=== PATIENT | female | born 1995 | race Caucasian/White ===

== ENCOUNTER 2021-01-31 13:26 | Inpatient (IN) | payer MEDICAID, SELFPAY ==
--- NOTE | ~2021-01-31 | XR_ITS ---
EXAMINATION: XR CHEST CLINICAL INFORMATION: Jaundice COMPARISON: None TECHNIQUE: Frontal view of the chest was obtained. FINDINGS: Cardiac silhouette is normal in size. Low lung volumes. No lobar consolidation. No pleural effusion or pneumothorax. No gross osseous abnormality. XR/XR chest 1V IMPRESSION: No acute pulmonary pathology.
--- NOTE | ~2021-01-31 | US_ITS ---
EXAMINATION: US ABDOMEN COMPLETE. Ultrasound duplex arterial and venous CLINICAL INFORMATION: Jaundice. Rule out portal vein thrombosis.. COMPARISON: None TECHNIQUE: Real-time imaging of the abdominal viscera. Doppler imaging upper abdomen vasculature was performed. FINDINGS: PANCREAS: Normal. ABDOMINAL AORTA: The proximal, mid, and distal segments are normal in caliber. INFERIOR VENA CAVA: Visualized portions are normal. LIVER: The liver is enlarged in size. The liver contour is normal. There is diffuse hepatic steatosis. No focal hepatic lesion. There is no intrahepatic biliary duct dilatation seen. GALLBLADDER: There is diffuse echogenic bilateral without stones, sludge, polyps, wall thickening or pericholecystic fluid. COMMON BILE DUCT: Normal in caliber measuring 0.27 cm in diameter. RIGHT KIDNEY: Normal. No hydronephrosis. No renal calculi or focal parenchymal lesions. The kidney measures 12.8 cm in maximum dimension. LEFT KIDNEY: There is anechoic cyst in midpole measuring 1.0 x 0.9 x 0.8 cm. No hydronephrosis. No renal calculi or focal parenchymal lesions. The kidney measures 11.3 cm in maximum dimension. SPLEEN: Normal. The spleen measures 14.2 cm in maximum dimension. FREE FLUID: None. On Doppler exam, there is normal hepatopedal flow seen in the main, right and left portal veins. There is antegrade but slightly turbulent flow seen in the main hepatic artery. Antegrade flow is also visualized in the right hepatic and a left hepatic arteries. The the middle, left and right hepatic veins have normal flow away from the liver. The IVC waveform is normal. The splenic vein is patent. There is no ascites or collateral vessels seen. US/US duplex arterial venous comp IMPRESSION: Midpole left renal cyst. Moderate hepatomegaly with diffuse hepatic steatosis. Normal Doppler examination with patent antegrade portal venous flow and patent hepatic veins. The hepatic artery is patent as well.
--- NOTE | ~2021-01-31 | US_ITS ---
EXAMINATION: US ABDOMEN COMPLETE. Ultrasound duplex arterial and venous CLINICAL INFORMATION: Jaundice. Rule out portal vein thrombosis.. COMPARISON: None TECHNIQUE: Real-time imaging of the abdominal viscera. Doppler imaging upper abdomen vasculature was performed. FINDINGS: PANCREAS: Normal. ABDOMINAL AORTA: The proximal, mid, and distal segments are normal in caliber. INFERIOR VENA CAVA: Visualized portions are normal. LIVER: The liver is enlarged in size. The liver contour is normal. There is diffuse hepatic steatosis. No focal hepatic lesion. There is no intrahepatic biliary duct dilatation seen. GALLBLADDER: There is diffuse echogenic bilateral without stones, sludge, polyps, wall thickening or pericholecystic fluid. COMMON BILE DUCT: Normal in caliber measuring 0.27 cm in diameter. RIGHT KIDNEY: Normal. No hydronephrosis. No renal calculi or focal parenchymal lesions. The kidney measures 12.8 cm in maximum dimension. LEFT KIDNEY: There is anechoic cyst in midpole measuring 1.0 x 0.9 x 0.8 cm. No hydronephrosis. No renal calculi or focal parenchymal lesions. The kidney measures 11.3 cm in maximum dimension. SPLEEN: Normal. The spleen measures 14.2 cm in maximum dimension. FREE FLUID: None. On Doppler exam, there is normal hepatopedal flow seen in the main, right and left portal veins. There is antegrade but slightly turbulent flow seen in the main hepatic artery. Antegrade flow is also visualized in the right hepatic and a left hepatic arteries. The the middle, left and right hepatic veins have normal flow away from the liver. The IVC waveform is normal. The splenic vein is patent. There is no ascites or collateral vessels seen. US/US abdomen complete IMPRESSION: Midpole left renal cyst. Moderate hepatomegaly with diffuse hepatic steatosis. Normal Doppler examination with patent antegrade portal venous flow and patent hepatic veins. The hepatic artery is patent as well.
[2021-01-31 14:23] VITALS: BP 108/48; PULSE 107; RESP 19; TEMP 37.2; O2SAT 97; BMI 22.6
[2021-01-31 17:28] LABS: Basophils Percent Auto 0.4 % (0-2); Eosinophils Absolute Auto 0.1 X10*3/uL (0.0-0.4); Eosinophils Percent Auto 0.6 % (0-4); Hematocrit 31.7 % (37-47); Hemoglobin 10.8 g/dl (12.0-16.0); Imm Gran Abs Auto 0.41 X10*3/uL (0.00-0.03); Lymphocytes Absolute Auto 0.5 X10*3/uL (1.2-4.9); Lymphocytes Percent Auto 4.9 % (20-40); MANUAL DIFF FLAG SCAN; Mean Corpuscular HGB Conc 34.1 g/dl (31.0-35.0); Mean Corpuscular Hemoglobin 31.5 pg (27.0-33.0); Mean Corpuscular Volume 92.4 fL (80-98); Mean Platelet Volume 9.7 fL (9.4-12.3); Monocytes Percent Auto 9.6 % (2-11); Neutrophils Absolute Auto 8.3 X10*3/uL (2.0-8.3); Neutrophils Percent Auto 80.5 % (45-73); Platelet Count 461 X10*3/uL (160-400); Red Blood Count 3.43 X10*6/uL (4.20-5.50); SCAN SMEAR FLAG 1; White Blood Count 10.3 X10*3/uL (4.8-10.8)
[2021-01-31 17:34] LABS: INTERNATIONAL NORM RATIO 1.6 (0.9-1.1); Prothrombin Time 19.1 SEC (10.8-13.0)
--- NOTE | 2021-01-31 17:34 | ED.GENADULT ---
HPI - General Adult General Chief complaint: Abdominal Pain Stated complaint: JAUNDICE Time Seen by Provider: 01/31/21 14:51 Source: patient Mode of arrival: ambulatory Limitations: no limitations History of Present Illness HPI narrative: 25-year-old female with no significant past medical history presents with jaundice. States that she noted her skin turning color less than a week ago, states that her abdomen feels distended and hard. She stop drinking alcohol about a week ago, she would drink at least a sleeve and a pt of 100 proof or more alcohol. She has been drinking like that for several years. She stopped drinking once she moved away from [place] to [place]. She was told at 1 time that she was close to liver failure, she has not seen a physician in several years. She does not describe any fevers or chills, does not describe any withdrawal symptoms at this time, denies chest pain or pressure, palpitations, shortness breath, dysuria, hematuria, and extremity edema. Onset (ago): week(s) (1) Location: abdomen Severity: moderate Pain Consistency: constant Associated symptoms: other (Jaundice) Related Data Home Medications Medication Instructions Recorded Confirmed No Known Home Meds 01/31/21 01/31/21 Allergies Allergy/AdvReac Type Severity Reaction Status Date / Time No Known Allergies Allergy Verified 01/31/21 14:52 Review of Systems Review of Systems: Constitutional: No Weight loss, No Fever, No Chills, No Night Sweats, positive Fatigue, positive Malaise ENT/Mouth: No Hearing loss, No Ear Pain, No Nasal Congestion, No Sinus Pain, No Hoarseness, No sore throat, No Rhinorrhea, No Swallowing Difficulty Eyes: Positive scleral icteric, No Eye Pain, No Swelling, No Redness, No Foreign Body, No Discharge, No Vision Changes Cardiovascular: No Chest Pain, No SOB, No Dyspnea on Exertion, No Orthopnea, No Edema, No Palpitations Respiratory: No Cough, No Sputum, No Wheezing, No Smoke Exposure, No Dyspnea Gastrointestinal: Positive Nausea, Positive Vomiting, positive Diarrhea, positive abdominal Pain, No Hematochezia, No Melena Genitourinary: no irregular bleeding, No Dysuria, No Urinary Frequency, No Hematuria, No Urinary Incontinence, No Urgency, No Flank Pain, No Urinary Flow Changes, No Hesitancy Musculoskeletal: No joint pain, No Myalgias, No Joint Swelling Skin: Positive jaundice, No Skin Lesions, No rash Neuro: No Weakness, No Numbness, No Paresthesias, No Loss of Consciousness, No Dizziness, No Headache Psych: No Anxiety/Panic, No Depression, No SI/HI/AH/VH, No Social Issues Heme/Lymph: No Bruising, No Bleeding,No Lymphadenopathy Endocrine: No Polyuria, No Polydipsia, No Temperature Intolerance Yes all other systems are reviewed and are negative [facility] Past Medical History Attestation statement: The following information was validated with the patient. Source: old records reviewed Social History Social History Alcohol intake: former Smoking Status: Current every day smoker Use of substances other than those prescribed or required for medical reasons: Yes Substance Use Type: Heroin and Marijuana Substance Use Frequency: Occasionally Advance Directives: No Advance Directives Information Provided: No Physical Exam Vital Signs: Vital Signs: Last Vital Signs Temp 98.6 F 01/31/21 22:24 Pulse 101 H 02/01/21 00:00 Resp 15 02/01/21 00:00 BP 102/56 L 02/01/21 00:00 Pulse Ox 97 02/01/21 00:00 Body Mass Index 22.6 Appearance: Alert. Oriented X3. No acute distress. Head: Normal external exam. Normocephalic. Atraumatic. No Carrillo signs noted. No raccoon eyes noted Eyes: PERRLA. EOMI. Conjunctiva and sclera icteric. Eyelids normal. ENT: TM's Normal. Pharynx normal. Uvula midline. Moist mucous membranes. No trismus noted. No drooling noted. No muffled voice noted. Neck: Normal inspection. Neck supple. No adenopathy. Thyroid Normal. No meningeal signs. No neck mass noted. CVS: Normal heart rate and rhythm. Heart sound normal. No murmurs noted. Pulses equal to all extremities. Respiratory: No respiratory distress. Painless inspiration. Breath sounds normal. No wheezes/rales/rhonchi noted. Chest nontender. No accessory muscle usage noted or decreased air movement noted. Abdomen: Soft and distended, firm but not rigid. Bowel sounds normal in all 4 quadrants. No distention noted. No organomegaly noted however exam limited secondary to suspected ascites. No visible injury noted. Back: No CVA tenderness. Full range of motion noted. Skin: Jaundiced, dry. Skin warm and dry. No rashes/lesions/lacerations noted. Extremities: No lower extremity edema. Extremities exhibit normal range of motion. Extremities nontender. Neuro: cranial nerves 2-12 intact, no focal neural deficits, strength 5/5 to all extremities, No motor deficit. No sensory deficit. Course Course Course Narrative: 25-year-old female with past medical history of alcohol abuse and liver disease presents with approximately 1 week of gradual onset of jaundice, abdominal pain, and fatigue. Patient recently moved from [place] to [place], and has not seen a physician in approximately 10 years. She did stop drinking about a week and half ago when she moved from [place] to [place]. She did not have any complications or alcohol withdrawal symptoms. She did notice that her skin was starting to discolor her about a week ago, and presents with diffuse jaundice and scleral icterus with abdominal pain and some bloating. She did report liver disease, suspected that she was close to cirrhosis. She has been drinking at least 1 sleeve and a pt of 100 proof or greater alcohol. She has been drinking heavily for several years. Will order labs, abdominal ultrasound, give vitamin supplementation, a L of fluid, with plan to admit. 7:41 p.m. patient has a Child Zamarripa score of 9. Discussion with hospitalist, hospitalist would like GI consult. Will consult with GI once abdominal ultrasound resulted. 9:40 p.m. discussion with on-call GI, Dr. Casanova, plan to admit for acute alcohol hepatitis, patient does not have any signs or symptoms indicating encephalopathy, ammonia level is 64. Discussion with hospitalist, hospitalist agrees to plan to admit. Consultations Consultation #1: ella Time: 19:30 Consultation #2: Edilberto Time: 19:34 Medical Decision Making Lab Data Lab results reviewed: Yes I reviewed the patient's lab results. Result diagrams: 01/31/21 17:21 01/31/21 17:21 Labs: Lab Results 01/31/21 01/31/21 01/31/21 Range/Units 17:21 17:21 17:21 WBC 10.3 (4.8-10.8) X10*3/uL RBC 3.43 L (4.20-5.50) X10*6/uL Hgb 10.8 L (12.0-16.0) g/dl Hct 31.7 L (37-47) % MCV 92.4 (80-98) fL MCH 31.5 (27.0-33.0) pg MCHC 34.1 (31.0-35.0) g/dl RDW 18.0 H (11.0-16.0) % Plt Count 461 H (160-400) X10*3/uL MPV 9.7 (9.4-12.3) fL Immature Gran % (Auto) 4.0 H (0.0-0.4) % Neut % (Auto) 80.5 H (45-73) % Lymph % (Auto) 4.9 L (20-40) % Clayton % (Auto) 9.6 (2-11) % Eos % (Auto) 0.6 (0-4) % Baso % (Auto) 0.4 (0-2) % Lymph # (Auto) 0.5 L (1.2-4.9) X10*3/uL Clayton # (Auto) 1.0 (0.1-1.2) X10*3/uL Eos # (Auto) 0.1 (0.0-0.4) X10*3/uL Baso # (Auto) 0.0 (0.0-0.2) X10*3/uL Abs Immat Gran (auto) 0.41 H (0.00-0.03) X10*3/uL Absolute Neuts (auto) 8.3 (2.0-8.3) X10*3/uL Absolute Nucleated RBC 0.000 (0.0-0.012) X10*3/uL Nucleated RBC % (auto) 0.0 (0.0-0.2) /100WBC Smear Tech's Comments VERIFIED PT 19.1 H (10.8-13.0) SEC INR 1.6 H (0.9-1.1) Sodium 130 L (135-145) mmol/L Potassium 3.0 L (3.3-5.1) mmol/L Chloride 92 L (96-108) mmol/L Carbon Dioxide 29 (22-29) mmol/L Anion Gap 12 (12-20) BUN 7 L (9-16) mg/dL Creatinine 0.60 (0.5-1.4) mg/dL Estim Creat Clear Calc 106.3 Estimated GFR > 60 Random Glucose 101 (60-115) mg/dL Calcium 8.2 L (8.4-10.2) mg/dL Magnesium (1.6-2.6) mg/dL Total Bilirubin 16.9 H (0.0-1.0) mg/dL Direct Bilirubin 13.0 H (0.0-0.5) mg/dL AST 516 H (5-31) U/L ALT 54 H (0-31) U/L Alkaline Phosphatase 144 H (39-117) U/L Ammonia (13-55) umol/L Lactate Dehydrogenase (122-220) U/L Troponin I High Sens (<3.5-17.0) ng/L Total Protein 6.4 L (6.5-8.0) g/dL Albumin 2.8 L (3.5-5.0) g/dL Lipase (8-78) U/L Salicylates (15-30) mg/dL Acetaminophen (<30) mcg/mL Ethyl Alcohol mg/dL COVID-19 ([facility]) (Negative) COVID-19 Clin Com 01/31/21 01/31/21 01/31/21 Range/Units 18:00 18:00 18:00 WBC (4.8-10.8) X10*3/uL RBC (4.20-5.50) X10*6/uL Hgb (12.0-16.0) g/dl Hct (37-47) % MCV (80-98) fL MCH (27.0-33.0) pg MCHC (31.0-35.0) g/dl RDW (11.0-16.0) % Plt Count (160-400) X10*3/uL MPV (9.4-12.3) fL Immature Gran % (Auto) (0.0-0.4) % Neut % (Auto) (45-73) % Lymph % (Auto) (20-40) % Clayton % (Auto) (2-11) % Eos % (Auto) (0-4) % Baso % (Auto) (0-2) % Lymph # (Auto) (1.2-4.9) X10*3/uL Clayton # (Auto) (0.1-1.2) X10*3/uL Eos # (Auto) (0.0-0.4) X10*3/uL Baso # (Auto) (0.0-0.2) X10*3/uL Abs Immat Gran (auto) (0.00-0.03) X10*3/uL Absolute Neuts (auto) (2.0-8.3) X10*3/uL Absolute Nucleated RBC (0.0-0.012) X10*3/uL Nucleated RBC % (auto) (0.0-0.2) /100WBC Smear Tech's Comments PT (10.8-13.0) SEC INR (0.9-1.1) Sodium (135-145) mmol/L Potassium (3.3-5.1) mmol/L Chloride (96-108) mmol/L Carbon Dioxide (22-29) mmol/L Anion Gap (12-20) BUN (9-16) mg/dL Creatinine (0.5-1.4) mg/dL Estim Creat Clear Calc Estimated GFR Random Glucose (60-115) mg/dL Calcium (8.4-10.2) mg/dL Magnesium 2.4 (1.6-2.6) mg/dL Total Bilirubin (0.0-1.0) mg/dL Direct Bilirubin (0.0-0.5) mg/dL AST (5-31) U/L ALT (0-31) U/L Alkaline Phosphatase (39-117) U/L Ammonia (13-55) umol/L Lactate Dehydrogenase 148 (122-220) U/L Troponin I High Sens < 3.5 (<3.5-17.0) ng/L Total Protein (6.5-8.0) g/dL Albumin (3.5-5.0) g/dL Lipase 50 (8-78) U/L Salicylates < 5.0 L (15-30) mg/dL Acetaminophen 6 (<30) mcg/mL Ethyl Alcohol < 10 mg/dL COVID-19 ([facility]) (Negative) COVID-19 Clin Com 01/31/21 01/31/21 Range/Units 19:18 21:47 WBC (4.8-10.8) X10*3/uL RBC (4.20-5.50) X10*6/uL Hgb (12.0-16.0) g/dl Hct (37-47) % MCV (80-98) fL MCH (27.0-33.0) pg MCHC (31.0-35.0) g/dl RDW (11.0-16.0) % Plt Count (160-400) X10*3/uL MPV (9.4-12.3) fL Immature Gran % (Auto) (0.0-0.4) % Neut % (Auto) (45-73) % Lymph % (Auto) (20-40) % Clayton % (Auto) (2-11) % Eos % (Auto) (0-4) % Baso % (Auto) (0-2) % Lymph # (Auto) (1.2-4.9) X10*3/uL Clayton # (Auto) (0.1-1.2) X10*3/uL Eos # (Auto) (0.0-0.4) X10*3/uL Baso # (Auto) (0.0-0.2) X10*3/uL Abs Immat Gran (auto) (0.00-0.03) X10*3/uL Absolute Neuts (auto) (2.0-8.3) X10*3/uL Absolute Nucleated RBC (0.0-0.012) X10*3/uL Nucleated RBC % (auto) (0.0-0.2) /100WBC Smear Tech's Comments PT (10.8-13.0) SEC INR (0.9-1.1) Sodium (135-145) mmol/L Potassium (3.3-5.1) mmol/L Chloride (96-108) mmol/L Carbon Dioxide (22-29) mmol/L Anion Gap (12-20) BUN (9-16) mg/dL Creatinine (0.5-1.4) mg/dL Estim Creat Clear Calc Estimated GFR Random Glucose (60-115) mg/dL Calcium (8.4-10.2) mg/dL Magnesium (1.6-2.6) mg/dL Total Bilirubin (0.0-1.0) mg/dL Direct Bilirubin (0.0-0.5) mg/dL AST (5-31) U/L ALT (0-31) U/L Alkaline Phosphatase (39-117) U/L Ammonia 64 H (13-55) umol/L Lactate Dehydrogenase (122-220) U/L Troponin I High Sens (<3.5-17.0) ng/L Total Protein (6.5-8.0) g/dL Albumin (3.5-5.0) g/dL Lipase (8-78) U/L Salicylates (15-30) mg/dL Acetaminophen (<30) mcg/mL Ethyl Alcohol mg/dL COVID-19 ([facility]) Negative (Negative) COVID-19 Clin Com See Note Imaging Data Abdominal ultrasound with Doppler: Attestation: I personally reviewed and interpreted this imaging study as follows: Radiologist's impression: EXAMINATION: US ABDOMEN COMPLETE. Ultrasound duplex arterial and venous CLINICAL INFORMATION: Jaundice. Rule out portal vein thrombosis.. COMPARISON: None TECHNIQUE: Real-time imaging of the abdominal viscera. Doppler imaging upper abdomen vasculature was performed. FINDINGS: PANCREAS: Normal. ABDOMINAL AORTA: The proximal, mid, and distal segments are normal in caliber. INFERIOR VENA CAVA: Visualized portions are normal. LIVER: The liver is enlarged in size. The liver contour is normal. There is diffuse hepatic steatosis. No focal hepatic lesion. There is no intrahepatic biliary duct dilatation seen. GALLBLADDER: There is diffuse echogenic bilateral without stones, sludge, polyps, wall thickening or pericholecystic fluid. COMMON BILE DUCT: Normal in caliber measuring 0.27 cm in diameter. RIGHT KIDNEY: Normal. No hydronephrosis. No renal calculi or focal parenchymal lesions. The kidney measures 12.8 cm in maximum dimension. LEFT KIDNEY: There is anechoic cyst in midpole measuring 1.0 x 0.9 x 0.8 cm. No hydronephrosis. No renal calculi or focal parenchymal lesions. The kidney measures 11.3 cm in maximum dimension. SPLEEN: Normal. The spleen measures 14.2 cm in maximum dimension. FREE FLUID: None. On Doppler exam, there is normal hepatopedal flow seen in the main, right and left portal veins. There is antegrade but slightly turbulent flow seen in the main hepatic artery. Antegrade flow is also visualized in the right hepatic and a left hepatic arteries. The the middle, left and right hepatic veins have normal flow away from the liver. The IVC waveform is normal. The splenic vein is patent. There is no ascites or collateral vessels seen. US/US abdomen complete IMPRESSION: Midpole left renal cyst. Moderate hepatomegaly with diffuse hepatic steatosis. Normal Doppler examination with patent antegrade portal venous flow and patent hepatic veins. The hepatic artery is patent as well. Critical Care Time Critical Care Time Critical Care Time: Yes Total Critical Care Time: 65 Attestation: I have personally provided critical care time exclusive of time spent on separately billable procedures. Time includes review of laboratory data, radiology results, discussion with consultants, and monitoring for potential decompensation. Interventions were performed as documented. Discharge Plan Discharge Clinical Impression: Acute alcoholic hepatitis Patient Disposition: Admitted As Inpatient
--- NOTE | 2021-01-31 17:35 | ECG_ITS ---
Test Reason : ABD PAIN Blood Pressure : / mmHG Vent. Rate : 097 BPM Atrial Rate : 097 BPM P-R Int : 140 ms QRS Dur : 106 ms QT Int : 374 ms P-R-T Axes : 042 035 010 degrees QTc Int : 474 ms Normal sinus rhythm Nonspecific ST and T wave abnormality Abnormal ECG No previous ECGs available Referred By: Terri Felder Electronically Signed By:KIM NOLEN
[2021-01-31 17:51] LABS: SLIDE REVIEW VERIFIED
[2021-01-31] MEDS: 0.9 % Sodium Chloride 1,000 ML 999 ML IVCONT (18:01)
[2021-01-31 18:07] LABS: Alanine Aminotransferase 54 U/L (0-31); Albumin Level 2.8 g/dL (3.5-5.0); Alkaline Phosphatase 144 U/L (39-117); Anion Gap 12 (12-20); Aspartate Amino Transferase 516 U/L (5-31); Blood Urea Nitrogen 7 mg/dL (9-16); Calcium 8.2 mg/dL (8.4-10.2); Carbon Dioxide 29 mmol/L (22-29); Chloride 92 mmol/L (96-108); Creatinine Clr Calc Pharmacy 106.3; Estimated Glomerular Filt Rate > 60; Glucose Random 101 mg/dL (60-115); Sodium 130 mmol/L (135-145); Total Protein 6.4 g/dL (6.5-8.0)
[2021-01-31 18:36] LABS: Ethanol < 10 mg/dL
[2021-01-31 18:37] LABS: Bilirubin Total 16.9 mg/dL (0.0-1.0)
[2021-01-31 18:44] LABS: Troponin-I High Sensitivity < 3.5 ng/L (<3.5-17.0)
[2021-01-31 18:45] LABS: Acetaminophen LAB 6 mcg/mL (<30); Lactate Dehydrogenase 148 U/L (122-220); Lipase 50 U/L (8-78); Magnesium 2.4 mg/dL (1.6-2.6)
--- NOTE | 2021-01-31 19:00 | PC.NURSE ---
Report taken from ENMANUEL Henry Patient is jaundice and has considerable alcohol history. Patient states she stopped drinking 2 wks ago. Labs are coming in and and electrolytes are off. Plan to put in another IV.
[2021-01-31 19:11] VITALS: BP 98/52; PULSE 94; RESP 18; TEMP 37.3; O2SAT 97
[2021-01-31] MEDS: Potassium Chloride Packet 20 MEQ PACKET 40 MEQ PO (19:18)
[2021-01-31] MEDS: Folic Acid 1 MG TABLET PO (19:18)
[2021-01-31] MEDS: Thiamine HCL 100 MG TABLET PO (19:19)
[2021-01-31 19:36] LABS: Ammonia 64 umol/L (13-55)
[2021-01-31 20:00] VITALS: BP 107/55; PULSE 100; RESP 18; TEMP 37.3; O2SAT 97
[2021-01-31] MEDS: predniSONE 20 MG TABLET 60 MG PO (22:01)
[2021-01-31 22:09] LABS: COVID-19 Test Negative (Negative)
[2021-01-31 22:24] VITALS: BP 110/55; PULSE 100; RESP 16; TEMP 37; O2SAT 97
--- NOTE | 2021-01-31 22:28 | P.HPHOSP_ITS ---
History of Present Illness Date of Service: 01/31/21 Chief Complaint: Jaundice 25-year-old female with a past medical history of alcohol abuse presented to the hospital with a chief complaint of generous. Patient mentioned that she noticed jaundice about 3-4 days ago. Mentions that for the past week or so she has been feeling fatigue tiredness loss of appetite. Denies any nausea vomiting diarrhea. Denies any blood in the stool. Denies any hematemesis. Mentions that she used to have nausea and vomiting but never had blood in the vomitus. Denies any numbness tingling. Denies any urinary symptoms. Mentioned that she used to drink alcohol daily in heavy quantities; last drink was about 1 week ago. Denies any withdrawal symptoms or seizure-like activities. Denies any fever chills cough. Denies any chest pain palpitations. Denies any numbness tingling. Review of all other systems is negative except mentioned above. ER course: Per ER team patient exam was benign. Ultrasound showed no evidence of obstruction. Labs showed elevated T bili of 16.1, LFTs elevated. Discussed with Dr. Casanova from Gastroenterology, who mentioned admitted to [facility] and start prednisolone for alcoholic hepatitis, will be evaluated in the morning, no need for transfer at this point. [facility] Social History Alcohol intake: former Smoking Status: Current every day smoker Use of substances other than those prescribed or required for medical reasons: Yes Substance Use Type: Heroin and Marijuana Substance Use Frequency: Occasionally Currently Displaying Signs/Symptoms of Drug Intoxication Withdrawal: No Advance Directives: No Advance Directives Information Provided: No Do you have thoughts of harming others: None Do you have a plan to hurt others: No Plan service: No Current occupational status: unemployed Meds Allergies Allergy/AdvReac Type Severity Reaction Status Date / Time No Known Allergies Allergy Verified 01/31/21 14:52 Active Medications: Current Medications Generic Name Dose Route Start Last Admin Trade Name Freq PRN Reason Stop Dose Admin Famotidine 20 mg 02/01/21 09:00 Famotidine 20 Mg Tablet PO DAILY KAVITHA Folic Acid 1 mg 02/01/21 09:00 Folic Acid 1 Mg Tablet PO 02/04/21 08:59 DAILY KAVITHA Multivitamins 1 tab 02/01/21 09:00 B-Complex With Vitamin C Tablet PO DAILY [facility] Pharmacy Consult 1 each 01/31/21 21:33 Consult Rx Perform Med Rec MISCELLANE ONCE PRN Consult order Prednisolone Sodium Phosphate 40 mg 02/01/21 09:00 Prednisolone Sodium Phosphate 15 Mg/5 Ml Solution PO DAILY [facility] Sodium Chloride 3 ml 02/01/21 00:00 0.9 % Sodium Chloride Flush 3 Ml Syringe IVFLUSH QSHIFT [facility] Thiamine HCl 100 mg 02/01/21 09:00 Thiamine Hcl 100 Mg Tablet PO 02/04/21 08:59 DAILY [facility] Home Medications Medication Instructions Recorded Confirmed Last Taken Type No Known Home Meds 01/31/21 01/31/21 Unknown History Physical Exam Vital Signs and Narrative: Vital Signs: Last Vital Signs Temp 99.2 F 01/31/21 20:00 Pulse 100 01/31/21 20:00 Resp 18 01/31/21 20:00 BP 107/55 L 01/31/21 20:00 Pulse Ox 97 01/31/21 20:00 Body Mass Index 22.6 Gen: Appears be in no acute distress; icteric sclera and yellow skin HEENT: NCAT, Moist mucosa. Pulmonary: Vesicular breath sounds, fair air entry CVS: Normal S1-S2 Abdomen: BS+, Soft, Nontender Extremities: Warm well perfused Neuro: Alert and awake. Results Labs CBC and Chem 7: 02/01/21 08:23 02/01/21 08:23 Labs: Laboratory Results - last 24 hr 01/31/21 01/31/21 01/31/21 17:21 17:21 17:21 MCV 92.4 MCH 31.5 MCHC 34.1 RDW 18.0 H Plt Count 461 H MPV 9.7 Immature Gran % (Auto) 4.0 H Neut % (Auto) 80.5 H Lymph % (Auto) 4.9 L Garden % (Auto) 9.6 Eos % (Auto) 0.6 Baso % (Auto) 0.4 Lymph # (Auto) 0.5 L Garden # (Auto) 1.0 Eos # (Auto) 0.1 Baso # (Auto) 0.0 Abs Immat Gran (auto) 0.41 H Absolute Neuts (auto) 8.3 Absolute Nucleated RBC 0.000 Nucleated RBC % (auto) 0.0 Smear Tech's Comments VERIFIED PT 19.1 H INR 1.6 H Anion Gap 12 Estim Creat Clear Calc 106.3 Estimated GFR > 60 Random Glucose 101 Calcium 8.2 L Magnesium Total Bilirubin 16.9 H Direct Bilirubin 13.0 H AST 516 H ALT 54 H Alkaline Phosphatase 144 H Ammonia Lactate Dehydrogenase Troponin I High Sens Total Protein 6.4 L Albumin 2.8 L Lipase Acetaminophen Ethyl Alcohol COVID-19 ([facility]) COVID-19 Clin Com 01/31/21 01/31/21 01/31/21 18:00 18:00 18:00 MCV MCH MCHC RDW Plt Count MPV Immature Gran % (Auto) Neut % (Auto) Lymph % (Auto) Garden % (Auto) Eos % (Auto) Baso % (Auto) Lymph # (Auto) Garden # (Auto) Eos # (Auto) Baso # (Auto) Abs Immat Gran (auto) Absolute Neuts (auto) Absolute Nucleated RBC Nucleated RBC % (auto) Smear Tech's Comments PT INR Anion Gap Estim Creat Clear Calc Estimated GFR Random Glucose Calcium Magnesium 2.4 Total Bilirubin Direct Bilirubin AST ALT Alkaline Phosphatase Ammonia Lactate Dehydrogenase 148 Troponin I High Sens < 3.5 Total Protein Albumin Lipase 50 Acetaminophen 6 Ethyl Alcohol < 10 COVID-19 ([facility]) COVID-19 Clin Com 01/31/21 01/31/21 19:18 21:47 MCV MCH MCHC RDW Plt Count MPV Immature Gran % (Auto) Neut % (Auto) Lymph % (Auto) Garden % (Auto) Eos % (Auto) Baso % (Auto) Lymph # (Auto) Garden # (Auto) Eos # (Auto) Baso # (Auto) Abs Immat Gran (auto) Absolute Neuts (auto) Absolute Nucleated RBC Nucleated RBC % (auto) Smear Tech's Comments PT INR Anion Gap Estim Creat Clear Calc Estimated GFR Random Glucose Calcium Magnesium Total Bilirubin Direct Bilirubin AST ALT Alkaline Phosphatase Ammonia 64 H Lactate Dehydrogenase Troponin I High Sens Total Protein Albumin Lipase Acetaminophen Ethyl Alcohol COVID-19 ([facility]) Negative COVID-19 Clin Com See Note Imaging Radiologist's Impressions: Impressions Abdomen Ultrasound 01/31/21 17:35 IMPRESSION: Midpole left renal cyst. Moderate hepatomegaly with diffuse hepatic steatosis. Normal Doppler examination with patent antegrade portal venous flow and patent hepatic veins. The hepatic artery is patent as well. Chest X-Ray 01/31/21 17:35 IMPRESSION: No acute pulmonary pathology. Doppler Study Ultrasound 01/31/21 20:10 IMPRESSION: Midpole left renal cyst. Moderate hepatomegaly with diffuse hepatic steatosis. Normal Doppler examination with patent antegrade portal venous flow and patent hepatic veins. The hepatic artery is patent as well. Assessment and Plan (1) Acute alcoholic hepatitis: Status: Acute 25-year-old female with a past medical history of alcohol abuse presented to the hospital with a chief complaint of Jaundice; noted to have alcoholic hepatitis. Admitted for further management Acute alcoholic hepatitis: Notified Gastroenterology Dr. Casanova. Will continue the patient on prednisolone 40 mg daily Monitor LFTs Will obtain hepatitis panel, EBV, CMV as well. MELD score 26; Maddreys Discriminantfunction score 58.8 Tylenol level negative. salycilate level pending History of alcohol abuse: Monitor on CIWA protocol. Seizure precautions. Thiamine, folate, multivitamins. Patient's last week was about 1 week ago. Alcoholic gastritis: PEPCID DVT ppx: SCD Code status: Full code
[2021-01-31 23:29] LABS: Salicylate < 5.0 mg/dL (15-30)
[2021-02-01] VITALS: BP 102/56; PULSE 101; RESP 15; O2SAT 97
[2021-02-01 06:00] VITALS: BP 102/65; PULSE 85; RESP 16; O2SAT 98
--- NOTE | 2021-02-01 07:13 | PC.NURSE ---
attempt to call report nurse not available will call back
--- NOTE | 2021-02-01 07:29 | PC.NURSE ---
called phlebotomy to notify pt will be going to [facility] [id number] for her am lab draw
[2021-02-01 07:51] VITALS: BP 97/62; PULSE 86; RESP 18; TEMP 35.8; O2SAT 96
[2021-02-01 08:47] LABS: HBsAGNum1 0.24 S/CO (0.00-0.99); Hepatitis B Surface Antigen Negative (Negative); ~Hepatitis C Antibody Nonreactive (Nonreactive)
[2021-02-01 08:50] LABS: HBS Num1 > 1000.00 mIU/mL (0-7.99); Hepatitis B Core Antibody Nonreactive (Nonreactive); ~Hepatitis B Surface Antibody REACTIVE (Nonreactive)
[2021-02-01 09:01] LABS: Basophils Percent Auto 0.3 % (0-2); Hematocrit 32.4 % (37-47); Hemoglobin 11.1 g/dl (12.0-16.0); Imm Gran Abs Auto 0.42 X10*3/uL (0.00-0.03); Imm Gran Pct Auto 3.9 % (0.0-0.4); Lymphocytes Absolute Auto 0.5 X10*3/uL (1.2-4.9); Lymphocytes Percent Auto 4.3 % (20-40); MANUAL DIFF FLAG SCAN; Mean Corpuscular HGB Conc 34.3 g/dl (31.0-35.0); Mean Corpuscular Hemoglobin 31.8 pg (27.0-33.0); Mean Corpuscular Volume 92.8 fL (80-98); Mean Platelet Volume 10.1 fL (9.4-12.3); Monocytes Absolute Auto 0.4 X10*3/uL (0.1-1.2); Monocytes Percent Auto 3.4 % (2-11); Neutrophils Absolute Auto 9.6 X10*3/uL (2.0-8.3); Neutrophils Percent Auto 88.1 % (45-73); Platelet Count 441 X10*3/uL (160-400); Red Blood Count 3.49 X10*6/uL (4.20-5.50); Red Cell Distribution Width 18.2 % (11.0-16.0); SCAN SMEAR FLAG 1; White Blood Count 10.9 X10*3/uL (4.8-10.8)
[2021-02-01 09:26] LABS: Alanine Aminotransferase 48 U/L (0-31); Albumin Level 2.5 g/dL (3.5-5.0); Alkaline Phosphatase 135 U/L (39-117); Anion Gap 11 (12-20); Aspartate Amino Transferase 370 U/L (5-31); Bilirubin Direct 12.7 mg/dL (0.0-0.5); Bilirubin Total 17.7 mg/dL (0.0-1.0); Blood Urea Nitrogen 7 mg/dL (9-16); Calcium 7.8 mg/dL (8.4-10.2); Carbon Dioxide 26 mmol/L (22-29); Chloride 98 mmol/L (96-108); Creatinine Clr Calc Pharmacy 132.8; Estimated Glomerular Filt Rate > 60; Glucose Random 110 mg/dL (60-115); Magnesium 2.4 mg/dL (1.6-2.6); Phosphorus 2.6 mg/dL (2.7-4.5); Sodium 131 mmol/L (135-145); Total Protein 5.9 g/dL (6.5-8.0)
--- NOTE | 2021-02-01 09:29 | MHC.CM.PN ---
PATIENT STATES THAT SHE IS INDEPENDENT WITH HER ADLS. SHE ALSO VERIFIES THAT SHE DOES NOT HAVE INSURANCE. PATIENT AGREES TO ASSISTANCE FROM [facility] WITH SECURING BENEFITS. SHE IS AWARE THAT FACE SHEET WILL BE FAXED TO THEM ([phone]) CASE MANAGEMENT FOLLOWING FOR ANY DISCHARGE NEEDS.
[2021-02-01] MEDS: Famotidine 20 MG TABLET PO (10:25)
[2021-02-01] MEDS: Thiamine HCL 100 MG TABLET PO (10:25)
[2021-02-01] MEDS: prednisoLONE sodium phosphate 15 MG/5 ML SOLUTION 40 MG PO (10:26)
[2021-02-01] MEDS: Folic Acid 1 MG TABLET PO (10:26)
[2021-02-01] MEDS: 0.9 % Sodium Chloride Flush 3 ML SYRINGE IVFLUSH ×4 (10:27→23:14)
--- NOTE | 2021-02-01 10:37 | HO.PM.IMPN ---
Subjective Subjective Date of Service: 02/01/21 <Hilda Julian NP - Last Filed: 02/01/21 10:46> Interval History: Follow up alcoholic hepatitis No abdominal pain, nausea or vomiting still with jaundice <Hilda Julian NP - Last Filed: 02/01/21 10:46> Physical Exam Vital Signs: Vital Signs: Last Vital Signs Temp 96.5 F L 02/01/21 07:51 Pulse 86 02/01/21 07:51 Resp 18 02/01/21 07:51 BP 97/62 02/01/21 07:51 Pulse Ox 96 02/01/21 07:51 Body Mass Index 22.6 <Hilda Julian NP - Last Filed: 02/01/21 10:46> Appearing in no acute distress head is normocephalic atraumatic eyes pupils are PERRLA sclera is icteric lung sounds are clear to auscultation heart regular rate rhythm, clear S1, S2 positive bowel sounds, abdomen is soft, nontender neuro patient is alert x3, no focal deficits Skin jaundiced <Hilda Julian NP - Last Filed: 02/01/21 10:46> Objective Data Current Medications Generic Name Dose Route Start Last Admin Trade Name Freq PRN Reason Stop Dose Admin Famotidine 20 mg 02/01/21 09:00 02/01/21 10:25 Famotidine 20 Mg Tablet PO 20 mg DAILY KAVITHA Administration Folic Acid 1 mg 02/01/21 09:00 02/01/21 10:26 Folic Acid 1 Mg Tablet PO 02/04/21 08:59 1 mg DAILY KAVITHA Administration Multivitamins 1 tab 02/01/21 09:00 02/01/21 10:25 B-Complex With Vitamin C Tablet PO 1 tab DAILY KAVITHA Administration Pharmacy Consult 1 each 01/31/21 21:33 Consult Rx Perform Med Rec MISCELLANE ONCE PRN Consult order Prednisolone Sodium Phosphate 40 mg 02/01/21 09:00 02/01/21 10:26 Prednisolone Sodium Phosphate 15 Mg/5 Ml Solution PO 40 mg DAILY KAVITHA Administration Sodium Chloride 3 ml 02/01/21 00:00 02/01/21 10:27 0.9 % Sodium Chloride Flush 3 Ml Syringe IVFLUSH 3 ml QSHIFT KAVITHA Administration Thiamine HCl 100 mg 02/01/21 09:00 02/01/21 10:25 Thiamine Hcl 100 Mg Tablet PO 02/04/21 08:59 100 mg DAILY KAVITHA Administration <Hilda Julian NP - Last Filed: 02/01/21 10:46> Labs CBC & Chem 7: : 02/03/21 05:55 02/03/21 05:55 <Hilda Julian NP - Last Filed: 02/01/21 10:46> Assessment and Plan (1) Acute alcoholic hepatitis: Status: Acute <Hilda Julian NP - Last Filed: 02/01/21 10:46> Assessment and Plan: 25-year-old female with history of alcohol abuse, reports drinking a sleeve of vodka nips daily up until 9 days ago. She presented with Jaundice; noted to have alcoholic hepatitis. Acute alcoholic hepatitis. MELD score 26, Maddreys Discriminantfunction score 58.8, negative Tylenol level negative, utox -Continue the patient on prednisolone 40 mg daily as per GI -Monitor LFTs closely -pending hepatitis panel, EBV, CMV -GI following Alcohol abuse. No signs of withdrawl, last drink 9 days ago -CIWA -Thiamine, folate, multivitamins. -PPI Coagulopathy. Secondary to alcohol abuse no bleeding -monitor DVT ppx SCD Code status: Full code Attending: Dr. Mccall <Hilda Julian NP - Last Filed: 02/01/21 10:46>
[2021-02-01 10:44] LABS: SLIDE REVIEW VERIFIED
[2021-02-01 11:51] VITALS: BP 110/63; PULSE 95; RESP 18; TEMP 36.3; O2SAT 95
--- NOTE | 2021-02-01 13:07 | MHC.CM.PN ---
IT HAS BEEN DISCOVERED THAT PATIENT HAS CT MEDICAID INSURANCE [facility][id number] SECONDARY TO [facility]. [facility] IS UNABLE TO VERIFY THE PRIMARY COVERAGE THOUGH. PER CONVERSATION WITH JAYA'S MOTHER, CASSIDY, PATIENT IS NOT COVERED UNDER HER INSURANCE PLAN.
--- NOTE | 2021-02-01 15:32 | MHC.CM.PN ---
VIRTUAL ASSISTANT FOR ADVERTISERS TO VISIT PATIENT TOMORROW (02/02/21)
[2021-02-01 15:44] VITALS: BP 102/59; PULSE 86; RESP 16; TEMP 36.3; O2SAT 96
--- NOTE | 2021-02-01 16:47 | P.CNGI_ITS ---
History of Present Illness Data of Consult Service Date: 02/01/21 Requesting physician: Satinder Mccall Primary Care Provider: None Physician HPI Reason for consult: Jaundice, elevated LFTs, acute alcoholic hepatitis 25-year-old female [place] [facility] with 1 week history of sumanthu lambert. HPI narrative: 25-year-old female with no significant past medical history presents with jaundice. States that she noted her skin turning color less than a week ago, states that her abdomen feels distended and hard. She stop drinking alcohol about a week ago, she would drink at least a sleeve and a pt of 100 proof or more alcohol. She has been drinking like that for several years. She stopped drinking once she moved away from [place] to [place]. She was told at 1 time that she was close to liver failure, she has not seen a physician in several years. She does not describe any fevers or chills, does not describe any withdrawal symptoms at this time, denies chest pain or pressure, palpitations, shortness breath, dysuria, hematuria, and extremity edema . Labs showed elevated LFTs with TB of 16.9. with AST > ALT cw ETOH related liver disease. Patient complains of nausea and vomiting for the past several monnths. Her PO intake has been low and she has been loosing weight. She complains of chills and denies fever. Denies symptoms of heartburn or dysphagia. Has infrequent bowel movements due to decreased PO intake. She started drinking at age 20 yrs - initially beer followed by hard liquor (Vodka, Rum and whiskey) for the past several yrs. Has had inpatient treatment for ETOH abuse x 2 in the past - 1 week each time. Denies having any withdrawl symptoms when she quits. Remote hx of drug use - none recently Admits to using Cannabis edibles and vaping 2-3 times daily for nausea & vomiting Pt states she has chronic fatigue and was diagnosed with Wendy-Danlos syndrome. She gives a hx of anxiety and two past episodes of panic attacks. Patient denies taking any medications at present Pt is single and lives with room mates, she has no children. She is oldest of 7 siblings. She was raised in [place], was working as a EQUIPMENT MAINTENANCE ENGINEER in [place] and moved to [place] a week ago since her Mom lives in [facility]. Multiple family members are alcoholics Patient denies known family history of colon polyps, colon cancer or other GI malignancies. IMAGING STUDIES: 01/31/21 ABDOMINAL ULTRASOUND SHOWED: Midpole left renal cyst. Moderate hepatomegaly with diffuse hepatic steatosis. Normal Doppler examination with patent antegrade portal venous flow andpatent hepatic veins. The hepatic artery is patent as well. ENDOSCOPIC STUDIES: Pt denies having an EGD or a Colonoscopy in the past Review of Systems Constitutional: Constitutional: Reports chills, Reports fatigue, Denies fever(s), Denies headache(s) and Reports weight loss Eyes: Eyes: Denies eye discharge and Denies irritation ENT: Reports Normal hearing present, Denies dysphagia, Denies dizziness and Denies headache(s) Cardiovascular: Cardiovascular: Denies chest pain, Denies leg edema and Denies dyspnea on exertion Respiratory: Respiratory: Denies cough, Denies dyspnea on exertion and Denies wheezing Gastrointestinal: Gastrointestinal: Denies abdominal pain, Denies change in bowel habits, Denies dysphagia, Denies heartburn, Reports nausea and Reports vomiting Genitourinary: Genitourinary: Denies difficulty voiding and Denies dysuria Musculoskeletal: Musculoskeletal: Denies back pain and Denies arthralgias Integumentary/Breasts: Skin/Breast: Denies pruritus, Denies rash and Denies jaundice Neurologic: Reports Normal hearing present, Denies Abnormal speech present, Denies dizziness, Denies headache(s) and Denies seizure-like activity Psychiatric: Psychiatric: Denies anxiety, Denies depression and Denies panic attacks Endocrine: Endocrine: Denies cold intolerance, Reports fatigue, Denies flushing and Denies heat intolerance Hematologic/Lymphatic: Hematologic/Lymphatic: Denies easy bleeding and Denies easy bruising Allergic/Immunologic: Allergic/Immunologic: Denies wheezing PMFSH Past Medical History Medical History Liver failure Malnutrition Social History Social History Alcohol intake: former Patient Tobacco Use Status: Tobacco use Unknown Use of substances other than those prescribed or required for medical reasons: Yes Substance Use Type: Marijuana Advance Directives: No Advance Directives Information Provided: No Patient : No service: No Current occupational status: unemployed Meds Allergies Allergy/AdvReac Type Severity Reaction Status Date / Time No Known Allergies Allergy Verified 02/18/21 01:35 Active Medications: Current Medications Generic Name Dose Route Start Last Admin Trade Name Cezarq PRN Reason Stop Dose Admin Famotidine 20 mg 02/01/21 09:00 02/01/21 10:25 Famotidine 20 Mg Tablet PO 20 mg DAILY KAVITHA Administration Folic Acid 1 mg 02/01/21 09:00 02/01/21 10:26 Folic Acid 1 Mg Tablet PO 02/04/21 08:59 1 mg DAILY KAVITHA Administration Multivitamins 1 tab 02/01/21 09:00 02/01/21 10:25 B-Complex With Vitamin C Tablet PO 1 tab DAILY KAVITHA Administration Pharmacy Consult 1 each 01/31/21 21:33 Consult Rx Perform Med Rec MISCELLANE ONCE PRN Consult order Prednisolone Sodium Phosphate 40 mg 02/01/21 09:00 02/01/21 10:26 Prednisolone Sodium Phosphate 15 Mg/5 Ml Solution PO 40 mg DAILY KAVITHA Administration Sodium Chloride 3 ml 02/01/21 00:00 02/01/21 15:59 0.9 % Sodium Chloride Flush 3 Ml Syringe IVFLUSH 3 ml QSHIFT KAVITHA Administration Thiamine HCl 100 mg 02/01/21 09:00 02/01/21 10:25 Thiamine Hcl 100 Mg Tablet PO 02/04/21 08:59 100 mg DAILY KAVITHA Administration Physical Exam Vital Signs: Vital Signs: Last Vital Signs Temp 97.4 F 02/01/21 15:44 Pulse 86 02/01/21 15:44 Resp 16 02/01/21 15:44 BP 102/59 L 02/01/21 15:44 Pulse Ox 96 02/01/21 15:44 Body Mass Index 22.6 Const: General: no acute distress and ill appearing Nutritional Appearance: underweight Orientation/consciousness: patient oriented x3 Limitations: no limitations HENMT: Head: Yes normal to inspection Ears: hearing grossly normal bilaterally Mouth: Normal oral and palatal mucosa present Eyes: Sclerae: scleral abnormal (Jaundice) Pupils: Equal, round and reactive pupils present Neck: Neck: Yes normal visual inspection Chest: Chest palpation & inspection: normal inspection of the chest Resp: Effort & Inspection: normal respiratory effort Auscultation: clear to auscultation bilaterally Cardio: Palpation: normal PMI Rate: regular rate Rhythm: regular rhythm Heart sounds: S1 normal heart sound present, S2 normal heart sound present and no murmurs GI: Palpation (GI): Soft to palpation and Hepatomegaly present (Liver palpable 4 cms below the RCM) Auscultation: normal bowel sounds Rectal Exam - Female: deferred Skin: General skin exam: no rashes or lesions noted, jaundice and spider nevi (one spider angioma on anterior chest) Neuro: General: patient oriented x3, gait normal and moves all extremities Cranial nerves: Yes Equal, round and reactive pupils present and Yes Normal hearing present Speech: No Abnormal speech present Psych: Appearance: grossly normal Mental Status: mental status grossly normal Attitude: cooperative Results Labs CBC & Chem 7: 02/03/21 05:55 02/03/21 05:55 Labs: Short CBC 01/31/21 02/01/21 Range/Units 17:21 08:23 WBC 10.3 10.9 H (4.8-10.8) X10*3/uL Hgb 10.8 L 11.1 L (12.0-16.0) g/dl Hct 31.7 L 32.4 L (37-47) % Plt Count 461 H 441 H (160-400) X10*3/uL BMP 01/31/21 02/01/21 17:21 08:23 Sodium 130 L 131 L Potassium 3.0 L 4.0 D Chloride 92 L 98 Carbon Dioxide 29 26 BUN 7 L 7 L Creatinine 0.60 0.48 L Calcium 8.2 L 7.8 L Liver Function 01/31/21 02/01/21 Range/Units 17:21 08:23 Total Bilirubin 16.9 H 17.7 H (0.0-1.0) mg/dL Direct Bilirubin 13.0 H 12.7 H (0.0-0.5) mg/dL AST 516 H 370 H (5-31) U/L ALT 54 H 48 H (0-31) U/L Alkaline Phosphatase 144 H 135 H (39-117) U/L Albumin 2.8 L 2.5 L (3.5-5.0) g/dL Assessment and Plan (1) Acute alcoholic hepatitis: Status: Acute (2) Elevated LFTs: Status: Acute 25 YF with hx of heavy ETOH abuse for the past 5 yrs admitted with Jaundice, nausea, vomiting one week after quitting ETOH abuse. Denies having any withdrawl symptoms. Elevated ammonia level without overt encephalopathy. Maddrey score is 50. Pt has normocytic normochromic anemia - likely nutritional and ? BM supression from ETOH abuse Pt was started on Prednisone 60 mg x1 yesterday in the ER followed by prednisolone 40 mg once daily. Repeat labs today show improvement in transaminases and slight worsening of total bilirubin RECOMMENDATIONS: 1. Continue PO prednisone 40 mg daily x 28 days, then taper by 10 mg every 4 days over 16 days. 2. Monitor LFTs daily. 3. Check TSH, Vitamin B 12, Vitamin D - added to am labs 4. Pt is at risk for refeeding syndrome - monitor phosphorus daily and replace prn 5. Needs ETOH rehab on discharge - pt is willing get treatment in outpatient rehab. 6. She needs to FU in the GI clinic after discharge to monitor her LFTS. Procedures Date of Service Date of Service: 02/01/21
[2021-02-01 19:04] VITALS: BP 101/57; PULSE 94; RESP 16; TEMP 36.2; O2SAT 96
[2021-02-02] VITALS (7 sets, daily range): BP systolic 94–114; BP diastolic 51–68; PULSE 74–99; RESP 14–20; TEMP 36.1–36.7; O2SAT 93–95
[2021-02-02] MEDS: Famotidine 20 MG TABLET PO (07:46)
[2021-02-02] MEDS: 0.9 % Sodium Chloride Flush 3 ML SYRINGE IVFLUSH ×2 (07:46→16:40)
[2021-02-02] MEDS: Folic Acid 1 MG TABLET PO (07:46)
[2021-02-02] MEDS: Thiamine HCL 100 MG TABLET PO (07:46)
[2021-02-02] MEDS: prednisoLONE sodium phosphate 15 MG/5 ML SOLUTION 40 MG PO (07:47)
[2021-02-02 08:10] LABS: HBc Num1 0.13 S/CO (0.00-0.79); Hepatitis A Antibody IgM 0.34 Index (0-0.79); ~Hepatitis A Antibody IgM Nonreactive (Nonreactive)
--- NOTE | 2021-02-02 10:11 | HO.PM.IMPN ---
Subjective Subjective Date of Service: 02/02/21 Interval History: feeling well, good appetite Cardiovascular Cardiovascular: Reports no additional cardiovascular complaints Respiratory Respiratory: Reports no additional respiratory complaints Physical Exam Vital Signs: Vital Signs: Last Vital Signs Temp 97.3 F 02/02/21 07:39 Pulse 74 02/02/21 07:39 Resp 16 02/02/21 07:39 BP 98/60 02/02/21 07:39 Pulse Ox 95 02/02/21 07:39 Body Mass Index 22.6 General: AO X 3, no acute distress, juandiced Resp: CTA bilateral CVS: S1,S2,RRR GI: soft, non tender, non distended Neuro: motor grossly intact Psych: appropriate affect Objective Data Current Medications Generic Name Dose Route Start Last Admin Trade Name Cezarq PRN Reason Stop Dose Admin Famotidine 20 mg 02/01/21 09:00 02/02/21 07:46 Famotidine 20 Mg Tablet PO 20 mg DAILY KAVITHA Administration Folic Acid 1 mg 02/01/21 09:00 02/02/21 07:46 Folic Acid 1 Mg Tablet PO 02/04/21 08:59 1 mg DAILY KAVITHA Administration Multivitamins 1 tab 02/01/21 09:00 02/02/21 07:46 B-Complex With Vitamin C Tablet PO 1 tab DAILY KAVITHA Administration Pharmacy Consult 1 each 01/31/21 21:33 Consult Rx Perform Med Rec MISCELLANE ONCE PRN Consult order Prednisolone Sodium Phosphate 40 mg 02/01/21 09:00 02/02/21 07:47 Prednisolone Sodium Phosphate 15 Mg/5 Ml Solution PO 40 mg DAILY KAVITHA Administration Sodium Chloride 3 ml 02/01/21 00:00 02/02/21 07:46 0.9 % Sodium Chloride Flush 3 Ml Syringe IVFLUSH 3 ml QSHIFT KAVITHA Administration Thiamine HCl 100 mg 02/01/21 09:00 02/02/21 07:46 Thiamine Hcl 100 Mg Tablet PO 02/04/21 08:59 100 mg DAILY KAVITHA Administration Labs CBC & Chem 7: 02/01/21 08:23 02/01/21 08:23 Assessment and Plan (1) Acute alcoholic hepatitis: Status: Acute Assessment and Plan: 25-year-old female with history of alcohol abuse, reports drinking a sleeve of vodka nips daily up until 9 days PTP. She presented with Jaundice; noted to have alcoholic hepatitis. Acute alcoholic hepatitis. negative Tylenol level negative, utox -Continue the patient on prednisolone 40 mg daily day 11/07 then taper by 10mg every 4 days -Monitor LFTs closely -follow up tsh, b12, vit d, monitor phosphorus Alcohol dependence without withdrawl -CIWA -Thiamine, folate, multivitamins. -PPI
--- NOTE | 2021-02-02 10:30 | MHC.RECOVRN ---
25 year old female presented to [facility] [place] [facility] on [place], ambulatory, due to jaundiced for a few days, abd distention, heavy drinking, gen weakness, also w cough, hasn't had etoh in ?week, denies any withdrawal symptoms, per bibliographic services specialist. Upon evaluation, pt admitted for acute alcoholic hepatitis.? T/w met with pt in 359 after request from case management. Pt reports?alcohol use since age 20, approximately 1 sleeve daily (vodka), last use 2 weeks ago at a celebration. Prior to that, pts last use was 2 months ago. Pt denies other substances. Pt reports losing weight due to not eating, feeling generally fatigued, and brain fog. Pt denies tx for AUD, including ATS. Pt denies withdrawal symptoms.? Pt reports music is helpful with recovery, pt plays guitar and ukulele, as well as playing video games. Pts girlfriend is supportive and does not use any substances. Pt is interested in recovery resources, resources were discussed and provided to pt. Pt would like to discuss options and resources further at another time.? Case discussed with STEPHANE as well as Katia Patel APRN. Will continue to follow.?
[2021-02-03] MEDS: 0.9 % Sodium Chloride Flush 3 ML SYRINGE IVFLUSH ×2 (01:08→08:26)
[2021-02-03 03:47] VITALS: BP 101/65; PULSE 83; RESP 18; TEMP 36.3; O2SAT 97
[2021-02-03 06:45] LABS: Hematocrit 31.3 % (37-47); Hemoglobin 10.4 g/dl (12.0-16.0); Mean Corpuscular HGB Conc 33.2 g/dl (31.0-35.0); Mean Corpuscular Hemoglobin 31.5 pg (27.0-33.0); Mean Corpuscular Volume 94.8 fL (80-98); Platelet Count 471 X10*3/uL (160-400); White Blood Count 14.4 X10*3/uL (4.8-10.8)
[2021-02-03 06:46] LABS: INTERNATIONAL NORM RATIO 1.2 (0.9-1.1); Prothrombin Time 14.2 SEC (10.8-13.0)
[2021-02-03 07:17] LABS: TSH reflex Free T4 0.55 uIU/mL (0.32-4.0); Vitamin D 25-OH Total 7.2 ng/mL (>30)
[2021-02-03 07:20] VITALS: BP 95/56; PULSE 79; RESP 18; TEMP 36.3; O2SAT 97
[2021-02-03 07:30] LABS: Alanine Aminotransferase 31 U/L (0-31); Albumin Level 2.3 g/dL (3.5-5.0); Alkaline Phosphatase 124 U/L (39-117); Anion Gap 10 (12-20); Aspartate Amino Transferase 129 U/L (5-31); Bilirubin Direct 7.3 mg/dL (0.0-0.5); Bilirubin Total 9.5 mg/dL (0.0-1.0); Blood Urea Nitrogen 12 mg/dL (9-16); Calcium 7.7 mg/dL (8.4-10.2); Carbon Dioxide 26 mmol/L (22-29); Chloride 102 mmol/L (96-108); Creatinine Clr Calc Pharmacy 120.3; Estimated Glomerular Filt Rate > 60; Glucose Fasting 81 mg/dL (60-99); Iron 50 mcg/dL (30-160); Percent Iron Saturation 40 % (15-50); Phosphorus 2.7 mg/dL (2.7-4.5); Potassium 3.4 mmol/L (3.3-5.1); Sodium 135 mmol/L (135-145); Total Iron Binding Capacity 126 mcg/dL (228-428); Total Protein 5.3 g/dL (6.5-8.0); Unsaturated Iron Binding 76 ug/dL
[2021-02-03] MEDS: Folic Acid 1 MG TABLET PO (08:23)
[2021-02-03] MEDS: prednisoLONE sodium phosphate 15 MG/5 ML SOLUTION 40 MG PO (08:24)
[2021-02-03] MEDS: Thiamine HCL 100 MG TABLET PO (08:24)
[2021-02-03] MEDS: Famotidine 20 MG TABLET PO (08:24)
[2021-02-03 09:16] LABS: Folate 6.1 ng/mL (> or = 4.0); Vitamin B12 744 pg/mL (200-900)
--- NOTE | 2021-02-03 09:30 | MHC.RECOVRN ---
T/w met with pt to f/u after providing resources yesterday. Pt denies questions and is unsure at this point which avenue she would like to take as far as recovery. Pt encouraged to obtain job coach and reach out to t/w if support is needed. Pt agreeable.
--- NOTE | 2021-02-03 09:42 | PM.DS ---
DS: Providers Provider Date of Service: 02/03/21 Date of admission: 01/31/21 22:24 Primary care physician: None Physician Consults: 01/31/21 22:20 Consult to Gastroenterology Routine Consulting Provider: Giorgi Casanova Reason for consultation: transmainitis; elevated t bili; ETOH abuse hx DS: Diagnosis Discharge Diagnosis (1) Acute alcoholic hepatitis: Status: Acute DS: Medications Discharge Medications Home Medications: Previous Rx's Medication Instructions Recorded prednisone 40 mg PO DAILY #62 tab 02/03/21 DS: Summary Hospital Course Hospital Course: Patient was admitted for acute alcoholic hepatitis. She was given high-protein diet and prednisolone due to elevated discriminant function. Her appetite improved and her liver function tests improved. Her INR decreased from 1.6 to 1.2 at discharge. Decreased from 17.7 to 9.5 at discharge. Patient was seen by Gastroenterology who recommended prednisone 40 mg for 4 weeks and then to decrease by 10 mg every 4 days. She will follow up outpatient with Gastroenterology. She is recommended to discontinue alcohol. Patient did not show any signs of withdrawal while in hospital. Time Spent with Patient Time attestation: Total time spent providing and/or coordinating discharge services: Discharge coordination time: Greater than 30 minutes Quality: Stroke Does the patient have a stroke diagnosis?: No Physical Exam Vital Signs: Vital Signs: Last Vital Signs Temp 97.3 F 02/03/21 07:20 Pulse 79 02/03/21 07:20 Resp 18 02/03/21 07:20 BP 95/56 L 02/03/21 07:20 Pulse Ox 97 02/03/21 07:20 Body Mass Index 22.6 General: AO X 3, no acute distress, jaundiced Resp: CTA bilateral CVS: S1,S2,RRR GI: soft, non tender, non distended Neuro: motor grossly intact Psych: appropriate affect DS: Data Data Completed and Pending Labs on day of discharge: Laboratory Results - last 24 hr 02/03/21 02/03/21 02/03/21 05:55 05:55 05:55 WBC 14.4 H RBC 3.30 L Hgb 10.4 L Hct 31.3 L MCV 94.8 MCH 31.5 MCHC 33.2 RDW 19.0 H Plt Count 471 H MPV 10.0 Absolute Nucleated RBC 0.000 Nucleated RBC % (auto) 0.0 PT 14.2 H D INR 1.2 H Sodium 135 Potassium 3.4 Chloride 102 Carbon Dioxide 26 Anion Gap 10 L BUN 12 D Creatinine 0.53 Estim Creat Clear Calc 120.3 Estimated GFR > 60 Fasting Glucose 81 Calcium 7.7 L Phosphorus 2.7 Iron 50 TIBC 126 L % Saturation 40 Unsat Iron Binding 76 Total Bilirubin 9.5 H Direct Bilirubin 7.3 H AST 129 H ALT 31 Alkaline Phosphatase 124 H Total Protein 5.3 L Albumin 2.3 L Vitamin B12 25-OH Vitamin D Total Folate TSH 0.55 02/03/21 02/03/21 05:55 05:55 WBC RBC Hgb Hct MCV MCH MCHC RDW Plt Count MPV Absolute Nucleated RBC Nucleated RBC % (auto) PT INR Sodium Potassium Chloride Carbon Dioxide Anion Gap BUN Creatinine Estim Creat Clear Calc Estimated GFR Fasting Glucose Calcium Phosphorus Iron TIBC % Saturation Unsat Iron Binding Total Bilirubin Direct Bilirubin AST ALT Alkaline Phosphatase Total Protein Albumin Vitamin B12 744 25-OH Vitamin D Total 7.2 Folate 6.1 TSH Discharge Plan Discharge Patient Disposition: Home, Self-Care Discharge Diagnosis: Alcoholic hepatitis Referrals: Giorgi Casanova MD [Physician] - 1 Week Physician,None [Primary Care Provider] - 1 Week Discharge Medications: New prednisone 20 mg tablet 40 mg PO DAILY Qty: 62 RF: 0 Discharge Orders: Discharge Order (Routine); Ordered 02/03/21 Ordered By: Clifton Perkins Diet: advance to usual diet Activity on Discharge: no alcohol Stand Alone Forms: Patient Portal Discharge page Care Plan Goals: recovery Health Concerns: etoh hepatitis Plan of Treatment: prednisone as prescribed, follow up with gi, no alcohol Assessment: see above Discharge Date/Time: 02/03/21 11:37
--- NOTE | 2021-02-03 10:09 | MHC.CM.PN ---
PATIENT IS DISCHARGED HOME - SELF CARE. SHE HAS BEEN SEEN BY THE RECOVERY SUPPORT RN WHO IS ALSO AWARE OF TODAY'S DISCHARGE. PATIENT IS ABLE TO SELF ARRANGE TRANSPORTATION HOME.
[2021-02-04 00:16] LABS: CMV DNA PCR Qn Source Whole Blood; CMV DNA Qn PCR <2.30 log IU/mL (<2.30); CMV DNA Qn Real Time PCR <200 IU/mL (<200)
[2021-02-04 05:32] LABS: EBV Source Whole Blood
== END 2021-02-03 11:37 | disposition home or self-care (01) | DRG 433 ==
LOC: HO.ED 21:50 → HO.EDOVER 22:41 → HO.S3 02-01 06:12
PROVIDERS: Emergency Medicine; Nurse Practitioner Family; Admitting Provider Hospitalist; Emergency Provider Emergency Medicine; Visit Provider Internal Medicine
DX: K70.10 Alcoholic hepatitis without ascites (principal); D68.9 Coagulation defect, unspecified; F17.210 Nicotine dependence, cigarettes, uncomplicated; F10.20 Alcohol dependence, uncomplicated; Z71.6 Tobacco abuse counseling; K29.20 Alcoholic gastritis without bleeding; Z20.822 Contact with and (suspected) exposure to COVID-19
CPT/HCPCS: 36415; 71045; 76700; 80048; 80076; 80143; 80179; 80320; 82140; 82306; 82607; 82746; 83540; 83615; 83690; 83735; 84100; 84443; 84484; 85025; 85027; 85610; 86704; 86706; 86709; 86803; 87340; 87497; 87635; 87798; 93005; 93975; 99285; 99291

== ENCOUNTER 2021-02-15 11:20 | Emergency (ER) | payer SELFPAY ==
--- NOTE | ~2021-02-15 | XR_ITS ---
EXAMINATION: XR CHEST CLINICAL INFORMATION: Bilateral leg edema. SOB. COMPARISON: Chest 01/31/2021 TECHNIQUE: Frontal view of the chest was obtained. FINDINGS: Both lungs are fairly well-expanded with platelike atelectasis left lower lobe infrahilar region. Rest of lungs are clear. Heart size and pulmonary vascularity is normal. No gross bony abnormality seen. XR/XR chest 1V IMPRESSION: Platelike atelectasis left lower lobe.
--- NOTE | ~2021-02-15 | CT_ITS ---
EXAMINATION: CT ANGIOGRAM OF THE CHEST WITH AND WITHOUT CONTRAST (CT PULMONARY ANGIOGRAM FOR PE) CLINICAL INFORMATION: Reason for Exam b/l LE edema. recent hospitalization. elev d-dimer COMPARISON: Previous chest x-ray from earlier today TECHNIQUE: Prior to contrast administration, noncontrast localization images were obtained. Subsequently, multidetector volumetric imaging was performed from the thoracic inlet to below the diaphragms following the administration of 65 mL Omnipaque 350 intravenous contrast. No contrast reaction reported Sagittal, coronal, and MIP oblique sagittal reformatted images were obtained on the CT workstation, uploaded to PACS, and reviewed. This CT examination was performed using dose optimization techniques as appropriate, variously including the following: *Automated exposure control *Adjustment of mA and/or kV according to patient size (this includes techniques or standardized protocols for targeted exams where dose is matched to indication/reason for exam; i.e. extremities or head) *Use of iterative reconstruction technique Total exam dose-length product 232 mGy-cm FINDINGS: QUALITY OF STUDY/CONTRAST BOLUS: Satisfactory. PULMONARY ARTERIES: No central or segmental pulmonary emboli. THORACIC AORTA: No aneurysm or dissection. LUNG: There is attenuation in both lower lobes suggestive of pneumonitis or small pneumonia. There is subsegmental atelectasis in the left lower lobe. The lungs are otherwise clear. PLEURA: No pleural effusion or pneumothorax. MEDIASTINUM: Normal heart size. No pericardial effusion. No hilar or mediastinal lymphadenopathy. No evidence of septal bowing or right heart strain. CHEST WALL/AXILLA: No axillary or internal mammary lymphadenopathy. OSSEOUS STRUCTURES: No acute or suspicious osseous abnormality. UPPER ABDOMEN: The spleen is not completely imaged but appears enlarged.. No reflux of contrast into the hepatic veins to suggest elevated right heart pressures. CT/CT angio chest PE protocol IMPRESSION: No evidence of pulmonary embolism. Bilateral lower lobe groundglass attenuation suggestive of pneumonitis or small pneumonia. Subsegmental atelectasis in the left lower lobe. Probable enlarged spleen. VTE: negative
--- NOTE | ~2021-02-15 | US_ITS ---
EXAMINATION: US VENOUS ULTRASOUND WITH DOPPLER LOWER EXTREMITY, BILATERAL CLINICAL INFORMATION: Bilateral leg swelling COMPARISON: None TECHNIQUE: Ultrasound of the deep veins is performed from the hip to the calf with compression sonography and color and pulse Doppler assessment. Spectral analysis with color-flow imaging is performed. FINDINGS: RIGHT: There is normal venous compression and respiratory variation and augmented flow. The visualized common femoral vein, superficial femoral vein, profunda femoral vein, popliteal vein, and the trifurcation region shows no evidence of deep venous thrombosis. There is no significant popliteal fossa cyst. LEFT: There is normal venous compression and respiratory variation and augmented flow. The visualized common femoral vein, superficial femoral vein, profunda femoral vein, popliteal vein, and the trifurcation region shows no evidence of deep venous thrombosis. There is no significant popliteal fossa cyst. US/US venous duplex LE BI IMPRESSION: No DVT demonstrated in the bilateral lower extremity.
[2021-02-15 11:53] VITALS: BP 106/65; PULSE 95; RESP 18; TEMP 36.4; O2SAT 96; BMI 24.5
[2021-02-15 13:15] LABS: INTERNATIONAL NORM RATIO 1.1 (0.9-1.1); Prothrombin Time 13.4 SEC (10.8-13.0)
[2021-02-15 13:18] LABS: Basophils Percent Auto 0.2 % (0-2); D Dimer 578 NG/ML; Eosinophils Absolute Auto 0.1 X10*3/uL (0.0-0.4); Eosinophils Percent Auto 1.8 % (0-4); Hematocrit 31.7 % (37-47); Hemoglobin 10.2 g/dl (12.0-16.0); Imm Gran Abs Auto 0.04 X10*3/uL (0.00-0.03); Imm Gran Pct Auto 0.8 % (0.0-0.4); Lymphocytes Absolute Auto 0.5 X10*3/uL (1.2-4.9); MANUAL DIFF FLAG SCAN; Mean Corpuscular HGB Conc 32.2 g/dl (31.0-35.0); Mean Corpuscular Hemoglobin 32.3 pg (27.0-33.0); Mean Corpuscular Volume 100.3 fL (80-98); Mean Platelet Volume 9.9 fL (9.4-12.3); Monocytes Absolute Auto 0.3 X10*3/uL (0.1-1.2); Monocytes Percent Auto 6.1 % (2-11); Neutrophils Percent Auto 80.1 % (45-73); Platelet Count 302 X10*3/uL (160-400); Red Blood Count 3.16 X10*6/uL (4.20-5.50); Red Cell Distribution Width 16.5 % (11.0-16.0); SCAN SMEAR FLAG 1; White Blood Count 4.9 X10*3/uL (4.8-10.8)
[2021-02-15 13:31] LABS: Alanine Aminotransferase 248 U/L (0-31); Albumin Level 2.8 g/dL (3.5-5.0); Alkaline Phosphatase 127 U/L (39-117); Anion Gap 11 (12-20); Aspartate Amino Transferase 558 U/L (5-31); Bilirubin Direct 3.1 mg/dL (0.0-0.5); Bilirubin Total 5.1 mg/dL (0.0-1.0); Blood Urea Nitrogen 4 mg/dL (9-16); Calcium 7.9 mg/dL (8.4-10.2); Carbon Dioxide 24 mmol/L (22-29); Chloride 108 mmol/L (96-108); Creatinine Clr Calc Pharmacy 142.3; Estimated Glomerular Filt Rate > 60; Glucose Random 84 mg/dL (60-115); Magnesium 1.7 mg/dL (1.6-2.6); Potassium 3.4 mmol/L (3.3-5.1); Sodium 140 mmol/L (135-145); Total Protein 6.1 g/dL (6.5-8.0)
[2021-02-15 13:32] LABS: Partial Thromboplastin Time 41.4 SEC (24.1-38.0)
[2021-02-15 13:33] LABS: B Type Natriuretic Peptide 152 pg/mL (<100)
--- NOTE | 2021-02-15 13:34 | ED.GENADULT ---
HPI - General Adult General Chief complaint: General Medical Stated complaint: Recheck Time Seen by Provider: 02/15/21 11:56 Source: patient Mode of arrival: ambulatory History of Present Illness HPI narrative: 25-year-old female with a past medical history of recent admission to our facility for acute alcoholic hepatitis discharged on 02/03/21 to the ED complaining of bilateral lower extremity swelling beginning during hospital admission however worsening. Also reports mild SOB. Denies EtOH use since hospital discharge. Denies abdominal pain, nausea, vomiting, diarrhea, CP, fever, oral OCPs, recent travel Onset (ago): day(s) Related Data Previous Rx's Medication Instructions Recorded prednisone 40 mg PO DAILY #62 tab 02/03/21 Allergies Allergy/AdvReac Type Severity Reaction Status Date / Time No Known Allergies Allergy Verified 01/31/21 14:52 Review of Systems Review of Systems: Constitutional: No Fever, No Chills, No Fatigue, No Malaise Cardiovascular: No Chest Pain, + SOB, No Dyspnea on Exertion, +Edema, No Palpitations Respiratory: No Cough, No Dyspnea Gastrointestinal: No Nausea, No Vomiting, No Diarrhea, No Constipation, No Abdominal pain Genitourinary: No Dysuria, No Urinary Frequency, No Hematuria, No Flank Pain Musculoskeletal: No joint pain, No Myalgias, No Joint Swelling Skin: No Skin Lesions, No rash Neuro: No Weakness, No Numbness, No Paresthesias, No Headache Yes all other systems are reviewed and are negative [facility] Past Medical History Attestation statement: The following information was validated with the patient. Medical History (Updated 02/15/21 @ 15:47 by NAUN Baugh) Liver failure Malnutrition Social History Social History Alcohol intake: unknown Patient Tobacco Use Status: Tobacco use Unknown Use of substances other than those prescribed or required for medical reasons: Unknown Substance Use Type: Heroin and Marijuana Advance Directives: Yes Advance Directives Information Provided: No Advance Directives on File: No Patient : No service: No Current occupational status: unemployed Physical Exam Vital Signs: Vital Signs: Last Vital Signs Temp 98.8 F 02/15/21 13:52 Pulse 70 02/15/21 13:52 Resp 16 02/15/21 13:52 BP 92/60 02/15/21 13:52 Pulse Ox 98 02/15/21 13:52 Body Mass Index 24.5 Const: General: cooperative and no acute distress Orientation/consciousness: patient oriented x3 Limitations: no limitations HENMT: Head: Yes normal to inspection Ears: hearing grossly normal bilaterally General nose exam: Normal external nose present Face and sinus: Yes normal facial exam Eyes: General: appearance normal, both eyes and all related structures EOM: EOMs intact bilaterally Neck: Neck: Yes normal visual inspection Resp: Effort & Inspection: normal respiratory effort Auscultation: clear to auscultation bilaterally Cardio: Rate: regular rate Heart sounds: S1 normal heart sound present and S2 normal heart sound present GI: Inspection: Yes normal to inspection Palpation (GI): Soft to palpation, nontender, no guarding and not rigid Skin: Rashes: no rashes Wounds: no wounds Neuro: General: patient oriented x3 Gait exam (Neuro): Normal gait present Extrem: Other: Bilateral lower extremity edema below the knees with calf tenderness General: Yes normal to inspection and Yes edema Course Course Course Narrative: -no leukocytosis, H&H stable, d-dimer elevated to 578 > will obtain CTA to rule out PE -bilirubins improved from prior admission, however AST/ALT worsening, BNP 152 >> GI consulted, Dr. Ocasio recommended adding CPK. Patient's labs should not be rebounding unless consuming EtOH, another liver injury/medication/infection, or skeletal muscle origin. Recommended admission for observation/transaminitis trending XR chest 1V IMPRESSION: Platelike atelectasis left lower lobe CT angio chest PE protocol IMPRESSION: No evidence of pulmonary embolism. Bilateral lower lobe groundglass attenuation suggestive of pneumonitis or small pneumonia. Subsegmental atelectasis in the left lower lobe. Probable enlarged spleen. VTE: negative >> patient without symptoms of pneumonia, no WBC count, no cough, no fever, pneumonia unlikely -[id number]--discussed admission with patient however she is refusing secondary to mother having surgery today and needs to home to take care of her. Discussed with patient she will need to sign out against medical advice, risk of and fulminant liver failure discussed, patient verbalized understanding, is A&O x3/competent to make decisions. Recommended patient return to the ED tomorrow or within the next 48 hours for repeat labs as she does not have a PCP in the area Medical Decision Making MDM Narrative Medical decision making narrative: 25-year-old female with a past medical history of recent admission to our facility for acute alcoholic hepatitis discharged on 02/03/21 to the ED complaining of bilateral lower extremity swelling beginning during hospital admission however worsening. On exam VSS, NAD, nontoxic appearing, bilateral lower extremity edema noted with calf tenderness. With patient's recent hospital admission concern for DVT/PE vs CHF vs liver failure Plan: EKG, labs, CXR, bilateral venous duplex ultrasound Lab Data Result diagrams: 02/15/21 12:56 02/15/21 12:56 Labs: Lab Results 02/15/21 02/15/21 02/15/21 Range/Units 12:56 12:56 12:56 WBC 4.9 (4.8-10.8) X10*3/uL RBC 3.16 L (4.20-5.50) X10*6/uL Hgb 10.2 L (12.0-16.0) g/dl Hct 31.7 L (37-47) % MCV 100.3 H (80-98) fL MCH 32.3 (27.0-33.0) pg MCHC 32.2 (31.0-35.0) g/dl RDW 16.5 H (11.0-16.0) % Plt Count 302 D (160-400) X10*3/uL MPV 9.9 (9.4-12.3) fL Immature Gran % (Auto) 0.8 H (0.0-0.4) % Neut % (Auto) 80.1 H (45-73) % Lymph % (Auto) 11.0 L (20-40) % [place] % (Auto) 6.1 (2-11) % Eos % (Auto) 1.8 (0-4) % Baso % (Auto) 0.2 (0-2) % Lymph # (Auto) 0.5 L (1.2-4.9) X10*3/uL [place] # (Auto) 0.3 (0.1-1.2) X10*3/uL Eos # (Auto) 0.1 (0.0-0.4) X10*3/uL Baso # (Auto) 0.0 (0.0-0.2) X10*3/uL Abs Immat Gran (auto) 0.04 H (0.00-0.03) X10*3/uL Absolute Neuts (auto) 4.0 (2.0-8.3) X10*3/uL Absolute Nucleated RBC 0.000 (0.0-0.012) X10*3/uL Nucleated RBC % (auto) 0.0 (0.0-0.2) /100WBC Smear Tech's Comments VERIFIED PT 13.4 H (10.8-13.0) SEC INR 1.1 (0.9-1.1) APTT 41.4 H (24.1-38.0) SEC D-Dimer 578 NG/ML Sodium 140 (135-145) mmol/L Potassium 3.4 (3.3-5.1) mmol/L Chloride 108 (96-108) mmol/L Carbon Dioxide 24 (22-29) mmol/L Anion Gap 11 L (12-20) BUN 4 L D (9-16) mg/dL Creatinine 0.49 L (0.5-1.4) mg/dL Estim Creat Clear Calc 142.3 Estimated GFR > 60 Random Glucose 84 (60-115) mg/dL Calcium 7.9 L (8.4-10.2) mg/dL Magnesium 1.7 (1.6-2.6) mg/dL Total Bilirubin 5.1 H (0.0-1.0) mg/dL Direct Bilirubin 3.1 H (0.0-0.5) mg/dL AST 558 H (5-31) U/L ALT 248 H (0-31) U/L Alkaline Phosphatase 127 H (39-117) U/L Total Creatine Kinase 35 (26-140) U/L B-Natriuretic Peptide (<100) pg/mL Total Protein 6.1 L (6.5-8.0) g/dL Albumin 2.8 L D (3.5-5.0) g/dL Beta HCG, Quant < 2 mIU/mL Salicylates < 5.0 L (15-30) mg/dL 02/15/21 Range/Units 12:56 WBC (4.8-10.8) X10*3/uL RBC (4.20-5.50) X10*6/uL Hgb (12.0-16.0) g/dl Hct (37-47) % MCV (80-98) fL MCH (27.0-33.0) pg MCHC (31.0-35.0) g/dl RDW (11.0-16.0) % Plt Count (160-400) X10*3/uL MPV (9.4-12.3) fL Immature Gran % (Auto) (0.0-0.4) % Neut % (Auto) (45-73) % Lymph % (Auto) (20-40) % [place] % (Auto) (2-11) % Eos % (Auto) (0-4) % Baso % (Auto) (0-2) % Lymph # (Auto) (1.2-4.9) X10*3/uL [place] # (Auto) (0.1-1.2) X10*3/uL Eos # (Auto) (0.0-0.4) X10*3/uL Baso # (Auto) (0.0-0.2) X10*3/uL Abs Immat Gran (auto) (0.00-0.03) X10*3/uL Absolute Neuts (auto) (2.0-8.3) X10*3/uL Absolute Nucleated RBC (0.0-0.012) X10*3/uL Nucleated RBC % (auto) (0.0-0.2) /100WBC Smear Tech's Comments PT (10.8-13.0) SEC INR (0.9-1.1) APTT (24.1-38.0) SEC D-Dimer NG/ML Sodium (135-145) mmol/L Potassium (3.3-5.1) mmol/L Chloride (96-108) mmol/L Carbon Dioxide (22-29) mmol/L Anion Gap (12-20) BUN (9-16) mg/dL Creatinine (0.5-1.4) mg/dL Estim Creat Clear Calc Estimated GFR Random Glucose (60-115) mg/dL Calcium (8.4-10.2) mg/dL Magnesium (1.6-2.6) mg/dL Total Bilirubin (0.0-1.0) mg/dL Direct Bilirubin (0.0-0.5) mg/dL AST (5-31) U/L ALT (0-31) U/L Alkaline Phosphatase (39-117) U/L Total Creatine Kinase (26-140) U/L B-Natriuretic Peptide 152 H (<100) pg/mL Total Protein (6.5-8.0) g/dL Albumin (3.5-5.0) g/dL Beta HCG, Quant mIU/mL Salicylates (15-30) mg/dL Discharge Plan Discharge Clinical Impression: Elevated LFTs, Leg edema Patient Disposition: Left Against Medical Advice Instructions: Acute Liver Failure (DC), Leg Edema (ED) Additional Instructions: You are signing out against medical advice, this brings about risk of , fulminant liver failure. It is recommended to have your liver functions monitored very closely Please return to the emergency department in the next 24-48 hours for repeat blood work Your ultrasound did not show a blood clot in her legs the CT scan of the chest did not show any blood clots in her lungs however does show possible small pneumonia however you do not have any symptoms of pneumonia so this is unlikely. if you do develop symptoms of pneumonia:cough, fever, chills, please return to the ED Prescriptions: No Action prednisone 20 mg tablet 40 mg PO DAILY Qty: 62 RF: 0 Referrals: Misbah Ocasio MD [Physician] - 2 days Mary Klein DO [Emergency Provider] - 1 day (For repeat blood work)
[2021-02-15 13:39] LABS: SLIDE REVIEW VERIFIED
[2021-02-15 13:52] VITALS: BP 92/60; PULSE 70; RESP 16; TEMP 37.1; O2SAT 98
[2021-02-15 14:08] LABS: HCG Quantitative < 2 mIU/mL
[2021-02-15 14:29] LABS: Salicylate < 5.0 mg/dL (15-30)
[2021-02-15] MEDS: iohexoL 350 MG/ML 100 ML INFUS..BTL IV (14:41)
--- NOTE | 2021-02-15 15:46 | HE.PHANOTE ---
Pharmacy has completed the medication reconciliation and there were no significant medication issues requiring provider attention.
[2021-02-15 16:00] VITALS: BP 89/62; PULSE 69; RESP 16; O2SAT 98
[2021-02-15 16:06] LABS: Acetaminophen LAB 2 mcg/mL (<30)
--- NOTE | 2021-02-15 16:10 | PC.NURSE ---
Patient encouraged to stay for treatment but pt refuses to stay and be admitted. Risks of leaving and not getting treatment explained and pt understandings but continues to refuse to stay. AMA form signed. Peripheral iv removed and pressure bandage applied.
== END 2021-02-15 16:12 | disposition left against medical advice (07) ==
PROVIDERS: Physician Assistant; Emergency Provider Emergency Medicine
DX: R22.43 Localized swelling, mass and lump, lower limb, bilateral (principal); M79.662 Pain in left lower leg; M79.661 Pain in right lower leg; R79.89 Other specified abnormal findings of blood chemistry; K70.10 Alcoholic hepatitis without ascites
CPT/HCPCS: 36415; 71045; 71275; 80048; 80076; 80143; 80179; 82550; 83735; 83880; 84702; 85025; 85379; 85610; 85730; 93970; 99284; 99285; Q9967

== ENCOUNTER 2021-02-17 19:25 | Emergency (ER) | payer SELFPAY ==
[2021-02-17 19:47] VITALS: BP 111/53; PULSE 67; RESP 16; TEMP 36.9; O2SAT 97; BMI 24.5
[2021-02-17 23:34] VITALS: BP 104/69; PULSE 59; RESP 14; O2SAT 99
[2021-02-17 23:43] LABS: Basophils Percent Auto 0.2 % (0-2); Eosinophils Absolute Auto 0.1 X10*3/uL (0.0-0.4); Eosinophils Percent Auto 2.1 % (0-4); Hematocrit 30.7 % (37-47); Imm Gran Abs Auto 0.04 X10*3/uL (0.00-0.03); Imm Gran Pct Auto 0.7 % (0.0-0.4); Lymphocytes Absolute Auto 0.9 X10*3/uL (1.2-4.9); MANUAL DIFF FLAG NO; Mean Corpuscular HGB Conc 32.6 g/dl (31.0-35.0); Mean Corpuscular Hemoglobin 33.1 pg (27.0-33.0); Mean Corpuscular Volume 101.7 fL (80-98); Monocytes Absolute Auto 0.4 X10*3/uL (0.1-1.2); Monocytes Percent Auto 6.4 % (2-11); Neutrophils Absolute Auto 4.3 X10*3/uL (2.0-8.3); Neutrophils Percent Auto 74.6 % (45-73); Platelet Count 286 X10*3/uL (160-400); Red Blood Count 3.02 X10*6/uL (4.20-5.50); Red Cell Distribution Width 16.6 % (11.0-16.0); White Blood Count 5.8 X10*3/uL (4.8-10.8)
[2021-02-17 23:54] LABS: INTERNATIONAL NORM RATIO 1.1 (0.9-1.1); Prothrombin Time 13.5 SEC (10.8-13.0)
[2021-02-17 23:56] LABS: Partial Thromboplastin Time 37.4 SEC (24.1-38.0)
[2021-02-18 01:33] VITALS: BP 129/77; PULSE 62; RESP 17; TEMP 36.8; O2SAT 99
--- NOTE | 2021-02-18 02:38 | ED.GENADULT ---
HPI - General Adult General Chief complaint: General Medical Stated complaint: LEG SWELLING Time Seen by Provider: 02/18/21 00:13 Source: patient Mode of arrival: ambulatory Limitations: no limitations History of Present Illness HPI narrative: Patient comes to the emergency room after she was advised to return to the emergency room. Patient left against medical advise on February 15, patient was supposed to be admitted per her gastroenterologists advise, Dr. Ocasio, patient has elevated LFTs likely secondary to alcohol abuse. On February 15 patient left against medical advice because she needed to take care of her mother who recently had surgery. Patient returns requesting to be admitted. Initially patient came in due to bilateral lower extremity edema. Since she left the hospital, patient has been using compression stockings, patient states that her legs feel well, no pain, swelling is minimal. Patient concerned about her liver enzymes. Related Data Previous Rx's Medication Instructions Recorded prednisone 40 mg PO DAILY #62 tab 02/03/21 Allergies Allergy/AdvReac Type Severity Reaction Status Date / Time No Known Allergies Allergy Verified 02/18/21 01:35 Review of Systems Review of Systems: Constitutional : No Weight loss, No Fever, No Chills, No Night Sweats, No Fatigue, No Malaise ENT/Mouth : No Hearing loss, No Ear Pain, No Nasal Congestion, No Sinus Pain, No Hoarseness, No sore throat, No Rhinorrhea, No Swallowing Difficulty Eyes: No Eye Pain, No Swelling, No Redness, No Foreign Body, No Discharge, No Vision Changes Cardiovascular : No Chest Pain, No SOB, No Dyspnea on Exertion, No Orthopnea, No Edema, No Palpitations Respiratory : No Cough, No Sputum, No Wheezing, No Smoke Exposure, No Dyspnea Gastrointestinal : No Nausea, No Vomiting, No Diarrhea, No Constipation, No abdominal Pain, No Hematochezia, No Melena Genitourinary : no irregular bleeding, No Dysuria, No Urinary Frequency, No Hematuria, No Urinary Incontinence, No Urgency, No Flank Pain, No Urinary Flow Changes, No Hesitancy Musculoskeletal : No joint pain, No Myalgias, No Joint Swelling Skin : No Skin Lesions, No rash Neuro : No Weakness, No Numbness, No Paresthesias, No Loss of Consciousness, No Dizziness, No Headache Psych : No Anxiety/Panic, No Depression, No SI/HI/AH/VH, No Social Issues, Heme/Lymph: No Bruising, No Bleeding,No Lymphadenopathy Endocrine : No Polyuria, No Polydipsia, No Temperature Intolerance [facility] Past Medical History Medical History Liver failure Malnutrition Social History Social History Alcohol intake: former Patient Tobacco Use Status: Tobacco use Unknown Use of substances other than those prescribed or required for medical reasons: Yes Substance Use Type: Marijuana Advance Directives: No Advance Directives Information Provided: No Patient : No service: No Current occupational status: unemployed Physical Exam Vital Signs: Vital Signs: Last Vital Signs Temp 98.6 F 02/18/21 03:07 Pulse 53 02/18/21 03:07 Resp 17 02/18/21 03:07 BP 127/81 02/18/21 03:07 Pulse Ox 98 02/18/21 03:07 Body Mass Index 24.5 Appearance: Alert. Oriented X3. No acute distress. Eyes: Pupils equal, round and reactive to light. ENT: Pharynx normal. Neck: Normal inspection. Neck supple. No lymph nodes noted. No crepitus CVS: Normal heart rate and rhythm. Pulses normal. Normal S1 and S2 Respiratory: No respiratory distress. Breath sounds normal. No Wheezing. No rales Abdomen: Soft and nontender. No rigidity. No distention. good BS x4 Skin: Skin warm and dry. Normal skin color. Normal skin turgor. Extremities: +1 pitting edema, compression stockings are on Neuro: Oriented X 3. No motor deficit. No sensory deficit. Moving all extermities. No slurred speech. Course Course Course Narrative: Patient feels well. At this time, she is asymptomatic. Patient is here because she was asked to return to the hospital when she left against medical advice. Admission was advised by her storage architect. At this time, chemistries pending. Sign-out given to Dr. Mcgregor Medical Decision Making Lab Data Result diagrams: 02/17/21 23:32 02/17/21 23:32 Labs: Lab Results 02/17/21 02/17/21 Range/Units 23:32 23:32 WBC 5.8 (4.8-10.8) X10*3/uL RBC 3.02 L (4.20-5.50) X10*6/uL Hgb 10.0 L (12.0-16.0) g/dl Hct 30.7 L (37-47) % MCV 101.7 H (80-98) fL MCH 33.1 H (27.0-33.0) pg MCHC 32.6 (31.0-35.0) g/dl RDW 16.6 H (11.0-16.0) % Plt Count 286 (160-400) X10*3/uL MPV 10.0 (9.4-12.3) fL Immature Gran % (Auto) 0.7 H (0.0-0.4) % Neut % (Auto) 74.6 H (45-73) % Lymph % (Auto) 16.0 L (20-40) % [place] % (Auto) 6.4 (2-11) % Eos % (Auto) 2.1 (0-4) % Baso % (Auto) 0.2 (0-2) % Lymph # (Auto) 0.9 L (1.2-4.9) X10*3/uL [place] # (Auto) 0.4 (0.1-1.2) X10*3/uL Eos # (Auto) 0.1 (0.0-0.4) X10*3/uL Baso # (Auto) 0.0 (0.0-0.2) X10*3/uL Abs Immat Gran (auto) 0.04 H (0.00-0.03) X10*3/uL Absolute Neuts (auto) 4.3 (2.0-8.3) X10*3/uL Absolute Nucleated RBC 0.000 (0.0-0.012) X10*3/uL Nucleated RBC % (auto) 0.0 (0.0-0.2) /100WBC PT 13.5 H (10.8-13.0) SEC INR 1.1 (0.9-1.1) APTT 37.4 (24.1-38.0) SEC Discharge Plan Discharge Prescriptions: No Action prednisone 20 mg tablet 40 mg PO DAILY Qty: 62 RF: 0
[2021-02-18 03:07] VITALS: BP 127/81; PULSE 53; RESP 17; TEMP 37; O2SAT 98
[2021-02-18 06:02] LABS: Sodium 142 mmol/L (135-145)
[2021-02-18 06:03] LABS: Carbon Dioxide 26 mmol/L (22-29); Chloride 108 mmol/L (96-108); Potassium 3.6 mmol/L (3.3-5.1)
[2021-02-18 06:04] LABS: Anion Gap 8 (12-20)
[2021-02-18 06:05] LABS: Blood Urea Nitrogen 13 mg/dL (9-16)
[2021-02-18 06:10] LABS: Estimated Glomerular Filt Rate 132
[2021-02-18 06:11] LABS: Calcium 8.1 mg/dL (8.4-10.2); Glucose Fasting 87 mg/dL (60-99)
[2021-02-18 06:12] LABS: Bilirubin Total 3.5 mg/dL (0.0-1.0)
[2021-02-18 06:17] LABS: Alanine Aminotransferase 148 U/L (0-31); Aspartate Amino Transferase 220 U/L (5-31)
[2021-02-18 06:19] LABS: Total Protein 5.8 g/dL (6.5-8.0)
[2021-02-18 06:20] VITALS: BP 98/55; PULSE 55; RESP 17; O2SAT 97
[2021-02-18 06:22] LABS: Alkaline Phosphatase 120 U/L (39-117)
[2021-02-18 07:57] LABS: Bilirubin Direct 2.2 mg/dL (0.0-0.5)
== END 2021-02-18 06:28 | disposition home or self-care (01) ==
PROVIDERS: Emergency Provider Emergency Medicine
DX: R79.89 Other specified abnormal findings of blood chemistry (principal); R60.0 Localized edema; F10.10 Alcohol abuse, uncomplicated
CPT/HCPCS: 36415; 80053; 80076; 85025; 85610; 85730; 99283; 99284